=== PATIENT | male | born 1995 | race Caucasian/White ===

== ENCOUNTER 2021-05-22 00:03 | Emergency (ER) | payer SELFPAY ==
[2021-05-22 00:08] VITALS: BP 128/87; PULSE 99; RESP 18; TEMP 36.3; O2SAT 100
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
--- NOTE | 2021-05-22 01:03 | ECG_ITS ---
Measurements Intervals [place] Rate: 96 P: 60 AK: 156 QRS: 83 QRSD: 94 T: 58 QT: 330 QTc: 417 Interpretive Statements SINUS RHYTHM BASELINE ARTIFACT- I, III, AVR, AVL, V1 NORMAL ECG Electronically Signed On 05-22-2021 7:50:14 [employer] by Mayco Patrick D.O.
[2021-05-22] MEDS: NICOTINE (*PBKC) 21 MG PATCH 1 PATCH TRANSDERM (01:35)
[2021-05-22 01:49] LABS: Add Urine Microscopic? NO; Appearance Urine Clear (Clear); Bilirubin Urine Negative (Negative); Blood Urine Negative (Negative); Color Urine Light Yellow (Yellow); Glucose Urine UA Negative (Negative); Ketones Urine Negative (Negative); Leukocyte Esterase Ur Negative LEU/UL (Negative); Nitrate Urine Negative (Negative); Protein Urine Negative (Negative); Specific Grav Ur <= 1.005 (1.010-1.020); Urobilinogen Urine 0.2 mg/dL (0.2-1.0); pH Urine 5.5 (5.0-8.0)
[2021-05-22 01:50] LABS: Basophils Absolute Auto 0.05 K/mm3 (0.00-0.10); Basophils Percent Auto 0.5 % (0.0-1.0); Eosinophils Absolute Auto 0.35 K/mm3 (0.02-0.50); Eosinophils Percent Auto 3.5 % (1.0-6.0); Hematocrit 48.7 % (40.0-54.0); Hemoglobin 16.7 g/dL (14.0-18.0); Immature Granulocyte Absolute 0.09 K/mm3 (0.00-0.00); Immature Granulocyte Percent A 0.9 % (0.0-0.0); Lymphocytes Absolute Auto 3.54 K/mm3 (1.10-4.50); Lymphocytes Percent Auto 35.5 % (18.0-42.0); Mean Corpuscular HGB Conc 34.3 g/dL (32.0-36.0); Mean Corpuscular Hemoglobin 31.9 pg (27.0-31.0); Mean Corpuscular Volume 93.1 fL (78.0-102.0); Mean Platelet Volume 9.5 fl (8.7-11.0); Monocytes Absolute Auto 0.73 K/mm3 (0.10-0.90); Monocytes Percent Auto 7.3 % (2.0-11.0); Neutrophils Absolute Auto 5.2 K/mm3 (1.7-7.2); Neutrophils Percent Auto 52.3 % (50.0-70.0); Platelet Count Result 288 K/mm3 (150-420); Red Blood Count 5.23 M/mm3 (4.70-6.10); Red Cell Distribution Width 11.1 % (11.6-14.4)
[2021-05-22 01:57] LABS: Amphetamine Screen Urine Positive (Negative); Barbiturate Screen Urine Negative (Negative); Benzodiazepines Screen Urine Negative (Negative); Cannabinoid Screen Urine Negative (Negative); Cocaine Screen Urine Negative (Negative); Methadone Screen Urine Negative (Negative); Opiate Screen Urine Negative (Negative); Phencyclidine Screen Urine Negative (Negative)
[2021-05-22 02:13] LABS: Alanine Aminotransferase 27 U/L (16-63); Albumin Level 4.1 g/dL (3.4-5.0); Alkaline Phosphatase 91 U/L (46-116); Anion Gap 11 mmol/L (8-16); Aspartate Amino Transferase 36 U/L (15-37); Bilirubin,Total 0.3 mg/dL (0.00-1.00); Blood Urea Nitrogen 9 mg/dL (7-18); Calcium 9.1 mg/dL (8.5-10.1); Carbon Dioxide 27 mmol/L (21-32); Chloride 106 mmol/L (98-108); Estimated CRCL calculation 129 ml/min; Estimated Glomerular Filt Rate > 60; Ethanol 125 mg/dL (0-6); Glucose 94 mg/dL (70-99); Osmolality Calculated 296 mOsm/kg (285-295); Potassium 4.7 mmol/L (3.5-5.1); Salicylate 5.3 mg/dL (2.8-20.0); Sodium 144 mmol/L (136-145); Thyroid Stimulating Hormone 1.55 uIU/mL (0.36-3.74); Total Protein 7.8 g/dL (6.4-8.2); Troponin I 5.8 ng/L (0.00-60.4)
[2021-05-22 02:14] LABS: Acetaminophen < 2 ug/mL (10-30)
[2021-05-22 02:15] LABS: SARS-CoV-2 Ag Negative (Negative)
--- NOTE | 2021-05-22 02:15 | PC.NURSE ---
Pt has fallen asleep and has no requests. RN continuing to monitor via camera.
--- NOTE | 2021-05-22 03:00 | PC.NURSE ---
Pt sleeping. RN observing via camera. See suicide observation flow sheet for more details.
[2021-05-22 04:00] VITALS: BP 108/55; PULSE 120; RESP 14; O2SAT 98
--- NOTE | 2021-05-22 04:00 | PC.NURSE ---
RN woke pt to obtain a set of vitals. Pt cooperative and calm. Pt had no requests at this time and fell back asleep. Continued to be watched via camera. See suicide observation flow sheet for more details.
--- NOTE | 2021-05-22 05:22 | PC.NURSE ---
Pt sleeping. RN observing via camera. See suicide flow sheet for more details.
--- NOTE | 2021-05-22 06:07 | PC.NURSE ---
Pt is sleeping. RN monitoring pt via security camera. See suicide observation flow sheet for more details.
[2021-05-22 06:45] LABS: Ethanol 11 mg/dL (0-6)
[2021-05-22 06:52] VITALS: BP 119/80; PULSE 107; RESP 14; TEMP 36.7; O2SAT 99
--- NOTE | 2021-05-22 07:04 | PC.NURSE ---
Pt sitting and watching tv. Pt has a breakfast tray ordered. Pt has no other complaints at this time. See suicide observation flow sheet for more details.
--- NOTE | 2021-05-22 08:15 | PC.NURSE ---
0715 pt watching tv, breakfast tray ordered. pt denies any suicidal or homicidal ideation. states has been sober for past 3 months and decided to have some drinks. pt currently lives with dad in [place] and mom lives couple blocks from hospital.
--- NOTE | 2021-05-22 09:20 | PC.NURSE ---
pt ate 100% of breakfast tray
[2021-05-22 10:39] VITALS: BP 118/87; PULSE 80; RESP 18; TEMP 36.9; O2SAT 97
== END 2021-05-22 10:48 | disposition home or self-care (01) ==
PROVIDERS: Emergency Provider Emergency Medicine
DX: T14.91XA Suicide attempt, initial encounter (principal); F10.920 Alcohol use, unspecified with intoxication, uncomplicated; Z20.822 Contact with and (suspected) exposure to COVID-19
CPT/HCPCS: 36415; 80053; 80307; 81003; 84443; 84484; 85025; 87426; 93005; 99283; 99284; A9270; C9803